=== PATIENT | male | born 2000 | race Caucasian/White ===

== ENCOUNTER 2022-12-12 17:27 | Emergency (ER) | payer OTHER | END 2022-12-12 18:45 | disposition home or self-care (01) | LOC: JD.ED 17:27 | DX: S82.832A Other fracture of upper and lower end of left fibula, initial encounter for closed fracture (principal); X50.1XXA Overexertion from prolonged static or awkward postures, initial encounter; Y93.01 Activity, walking, marching and hiking | CPT/HCPCS: 73610-26-LT; 73610-LT; 99282; 99283 ==

== ENCOUNTER 2022-12-16 08:34 | Day surgery (SDC) | payer OTHER ==
[~2022-12-16 08:34] MED LIST: Lactated Ringers 1,000 ML IV SCH; Lidocaine 1%/Sod Bicarbonate in NS 8.4% 1 ML Syringe IDERM PRN; Sodium Chloride 0.9% 10 ML Syringe FLUSH PRN; Sodium Chloride 0.9% 10 ML Syringe FLUSH SCH
[2022-12-16] MEDS ORDERED: Bupivacaine 0.25% 10 ML SDV ONE (09:10)
[2022-12-16] MEDS ORDERED: Propofol 200 MG/20 ML SDV ONE ×2 (09:35→09:37)
[2022-12-16] MEDS ORDERED: fentaNYL 100 MCG/2 ML SDV ONE ×2 (09:35→11:05)
[2022-12-16] MEDS ORDERED: Midazolam 1 MG/ML 2 ML SDV ONE (09:36)
[2022-12-16] MEDS ORDERED: Lidocaine 1% 4 ML ONE (09:40)
[2022-12-16] MEDS ORDERED: Ondansetron 4 MG/2 ML SDV IVPUSH PRN (10:13)
[2022-12-16] MEDS ORDERED: fentaNYL 100 MCG/2 ML SDV IVPUSH PRN (10:13)
[2022-12-16] MEDS ORDERED: HYDROmorphone 0.5 MG/0.5 ML Syringe IVPUSH PRN (10:13)
[2022-12-16] MEDS ORDERED: ceFAZolin 2 GM Vial ONE (10:14)
[2022-12-16] MEDS ORDERED: Ropivacaine 0.5% 5 MG/ML 30 ML SDV ONE (10:35)
[2022-12-16] MEDS ORDERED: Lactated Ringers 1,000 ML ONE ×3 (10:54→11:39)
[2022-12-16] MEDS ORDERED: Ondansetron 4 MG/2 ML SDV ONE (11:38)
[2022-12-16] MEDS ORDERED: Dexamethasone 4 MG/ML 5 ML MDV ONE (11:49)
[2022-12-16] MEDS ORDERED: Dexmedetomidine 200 MCG/2 ML SDV ONE (11:49)
== END 2022-12-16 14:25 | disposition home or self-care (01) ==
LOC: JD.SDS 08:34
PROVIDERS: ATTEND Orthopaedic Surgery
DX: S82.842A Displaced bimalleolar fracture of left lower leg, initial encounter for closed fracture (principal); S93.432A Sprain of tibiofibular ligament of left ankle, initial encounter; W00.0XXA Fall on same level due to ice and snow, initial encounter
CPT/HCPCS: 27792; 27829; 64445; 76000; C1713; C1776; J0690; J1100; J2250; J2405; J2704; J2795; J3010; J7120; 01480; 64450; J3490